=== PATIENT | female | born 2000 | race Caucasian/White ===

== ENCOUNTER 2018-09-13 18:53 | Emergency (ER) | payer OTHER ==
[~2018-09-13] VITALS: Ht 160 cm; Wt 52.3 kg
[2018-09-13] MEDS ORDERED: PRENTAB55 PO (18:58)
--- NOTE | 2018-09-13 21:55 | REPVR ---
EXAM: US First Trimester, Transabdominal EXAM DATE/TIME: 09/13/2018 8:56 PM CLINICAL HISTORY: 18 years old, female; Signs and symptoms; Lmp or gestational age (in weeks): Lmp 07/28/18; Antepartum complications; Bleeding; ; Additional info: Vaginal bleeding TECHNIQUE: Real-time transabdominal obstetrical ultrasound of the maternal pelvis and a first trimester , less than 14 weeks 0 days, with image documentation. COMPARISON: No relevant prior studies available. FINDINGS: GESTATION: Gestation: Small gestational sac within the fundal endometrium which contains an internal structure. Heart rate: No heartbeat is seen BIOMETRY: Mean sac diameter: Mean sac size is 2.4 mm suggesting an age of 4 weeks 6 days. MATERNAL: Uterus: The uterus measures 8.0 cm in its cephalocaudad dimension and 3.6 x 5.7 cm in its AP and lateral dimensions transabdominal. The uterus measures 8.0 cm in its cephalocaudad dimension and 3.4 x 4.9 cm in its AP and lateral dimensions transvaginal. The endometrium measures 12 mm both transabdominal and transvaginal. Cervix: Unremarkable. Right adnexa: The right ovary measures 3.6 x 2.2 x 2.1 cm and demonstrates blood flow. Left adnexa: The left ovary measures 2.4 x 3.7 x 2.8 cm and demonstrates blood flow. Intraperitoneal: Trace fluid in the cul-de-sac which is physiologic. IMPRESSION: 1. Very early gestational sac within the fundal endometrium which by size suggests an age of 4 weeks 6 days. Followup in 1-2 weeks may be of benefit to establish viability. 2. Otherwise negative pelvic sonogram. Electronically signed by: Seth Jose On 09/13/2018 21:54:58 PM
[2018-09-13 22:13] VITALS: BP 111/57
== END 2018-09-13 22:17 | disposition home or self-care (01) ==
LOC: M ED 18:53
DX: O20.9 Hemorrhage in early pregnancy, unspecified (principal); Z3A.01 Less than 8 weeks gestation of pregnancy; Z88.8 Allergy status to other drugs, medicaments and biological substances; Z87.891 Personal history of nicotine dependence

== ENCOUNTER 2018-09-15 15:40 | Emergency (ER) | payer OTHER ==
[~2018-09-15] VITALS: Ht 160 cm; Wt 50.9 kg
[2018-09-15 15:40] VITALS: BP 116/63
[~2018-09-15 15:40] MED LIST: PRENTAB55 PO
[2018-09-15 16:14] LABS: BASO # 0.1 10^3/uL (0.0-0.2); BASO % 1.2 % (0.0-1.0); EOS # 0.1 10^3/uL (0.0-0.50); EOS % 1.3 % (0.0-3.0); HEMATOCRIT 40.8 % (36.0-47.0); HEMOGLOBIN 13.4 g/dl (12.0-15.5); LYMPH # 1.9 10^3/uL (1.5-6.5); LYMPH % 27.2 % (24.0-44.0); MEAN CORPUSCULAR HEMOGLOBIN 28.9 pg (27.0-33.0); MEAN CORPUSCULAR HGB CONC 32.8 g/dl (32.0-36.5); MEAN CORPUSCULAR VOLUME 87.9 fl (80.0-96.0); MONO # 0.6 10^3/uL (0.0-0.8); MONO % 8.4 % (0.0-5.0); NEUTROPHILS # 4.2 10^3/uL (1.8-7.7); NEUTROPHILS % 61.8 % (36.0-66.0); PLATELET COUNT, AUTOMATED 253 10^3/uL (150-450); RED BLOOD COUNT 4.64 10^6/uL (4.00-5.40); WHITE BLOOD COUNT 6.8 10^3/uL (4.0-10.0)
[2018-09-15 16:31] LABS: BLOOD UREA NITROGEN 10 MG/DL (7-18); CALCIUM LEVEL 9.2 MG/DL (8.5-10.1); CARBON DIOXIDE LEVEL 28 MEQ/L (21-32); CHLORIDE LEVEL 103 MEQ/L (98-107); GLUCOSE, FASTING 88 MG/DL (70-100); POTASSIUM SERUM 4.3 MEQ/L (3.5-5.1); SODIUM LEVEL 140 MEQ/L (136-145)
[2018-09-15 16:36] LABS: HCG, SERUM QUALITATIVE POSITIVE (NEGATIVE)
== END 2018-09-15 18:06 | disposition left against medical advice (07) ==
LOC: M ED 15:40
DX: O20.0 Threatened abortion (principal); Z87.891 Personal history of nicotine dependence; Z3A.01 Less than 8 weeks gestation of pregnancy; Z88.8 Allergy status to other drugs, medicaments and biological substances

== ENCOUNTER → 2018-11-08 | Outpatient (REF) | payer OTHER | LOC: M SFHCLERA 10:40 | PROVIDERS: ATTEND Physician Assistant | DX: R30.0 Dysuria (principal) ==

== ENCOUNTER 2018-11-16 18:17 | Emergency (ER) | payer OTHER ==
[~2018-11-16] VITALS: Ht 162.6 cm; Wt 62.5 kg
[2018-11-16] MEDS ORDERED: CRANBERRY (18:27)
[2018-11-16] MEDS ORDERED: XULA1DIS (18:27)
[2018-11-16 20:55] VITALS: BP 118/81
== END 2018-11-16 20:55 | disposition home or self-care (01) ==
LOC: M ED 18:17
DX: R30.0 Dysuria (principal)

== ENCOUNTER 2019-05-13 20:04 | Emergency (ER) | payer OTHER ==
[~2019-05-13] VITALS: Ht 152.4 cm; Wt 68.2 kg
[~2019-05-13 20:04] MED LIST changes: +CRANBERRY; +XULA1DIS
[2019-05-13 20:55] LABS: BASO # 0.1 10^3/uL (0.0-0.2); BASO % 0.8 % (0.0-1.0); EOS # 0.1 10^3/uL (0.0-0.5); HEMATOCRIT 44.7 % (36.0-47.0); HEMOGLOBIN 15.1 g/dl (12.0-15.5); LYMPH # 1.9 10^3/uL (1.5-5.0); LYMPH % 27.4 % (24.0-44.0); MEAN CORPUSCULAR HEMOGLOBIN 30.2 pg (27.0-33.0); MEAN CORPUSCULAR HGB CONC 33.8 g/dl (32.0-36.5); MEAN CORPUSCULAR VOLUME 89.4 fl (80.0-96.0); MONO # 0.5 10^3/uL (0.0-0.8); MONO % 7.6 % (0.0-5.0); NEUTROPHILS # 4.4 10^3/uL (1.5-8.5); NEUTROPHILS % 61.9 % (36.0-66.0); PLATELET COUNT, AUTOMATED 312 10^3/uL (150-450); WHITE BLOOD COUNT 7.1 10^3/uL (4.0-10.0)
[2019-05-13 21:05] LABS: ALBUMIN 4.4 GM/DL (3.2-5.2); ALT/SGPT 15 U/L (12-78); BILIRUBIN,DIRECT < 0.1 MG/DL (0.0-0.2); BILIRUBIN,TOTAL 0.3 MG/DL (0.2-1.0); BLOOD UREA NITROGEN 12 MG/DL (7-18); CALCIUM LEVEL 9.8 MG/DL (8.5-10.1); CARBON DIOXIDE LEVEL 28 MEQ/L (21-32); CHLORIDE LEVEL 105 MEQ/L (98-107); CREATININE FOR GFR 0.72 MG/DL (0.55-1.30); GLUCOSE, FASTING 86 MG/DL (70-100); LIPASE 139 U/L (73-393); POTASSIUM SERUM 4.7 MEQ/L (3.5-5.1); SODIUM LEVEL 140 MEQ/L (136-145); TOTAL PROTEIN 8.5 GM/DL (6.4-8.2)
[2019-05-13] MEDS ORDERED: NS 1,000 ML IV ONE (22:15)
[2019-05-13 22:18] LABS: INR 0.93; PROTHROMBIN TIME 12.2 SECONDS (11.8-14.0)
[2019-05-13 22:28] LABS: HCG, SERUM QUALITATIVE NEGATIVE (NEGATIVE)
[2019-05-13] MEDS ORDERED: PROC1AER16 PR (23:09)
[2019-05-13 23:41] VITALS: BP 112/68
--- NOTE | 2019-05-14 08:14 | REP ---
Acute abdominal series: Four views. History: Gastrointestinal bleed. Findings: Upright chest radiograph is normal. There is no evidence of infiltrate or free subdiaphragmatic air. Heart is not enlarged. Supine and erect views of the abdomen reveal a normal bowel gas pattern. Surgical clips are noted in the right upper quadrant, right mid abdomen, and umbilical jewelry is noted incidentally. Psoas margins and flank stripes are intact. No mass, organomegaly, or pathologic calcification is seen. Impression: Surgical clips in the right upper and right mid abdomen. Otherwise negative abdominal series. Electronically Signed by Kwame Choi MD 05/14/2019 08:05 A
== END 2019-05-13 23:51 | disposition home or self-care (01) ==
LOC: M ED 20:04
DX: K62.5 Hemorrhage of anus and rectum (principal); K64.9 Unspecified hemorrhoids

== ENCOUNTER → 2019-05-19 | Outpatient (REF) | payer OTHER ==
[~2019-05-19] MED LIST changes: +PROC1AER16 PR
== END ==
LOC: M SFHCLERA 11:46
PROVIDERS: ATTEND Nurse Practitioner Family
DX: J02.9 Acute pharyngitis, unspecified (principal)

== ENCOUNTER 2019-06-02 10:56 | Day surgery (SDC) | payer OTHER ==
[~2019-06-02] VITALS: Ht 160 cm; Wt 69.4 kg
[~2019-06-02 10:56] MED LIST changes: +NS 1,000 ML IV ONE
[2019-06-02] MEDS ORDERED: PROPOFOL 200 MG/20 ML VIAL As Ordered ONE (12:17)
[2019-06-02] MEDS ORDERED: LIDOCAINE 2% INJ 100 MG/5 ML SDV (FOR ANES.) As Ordered ONE (12:18)
--- NOTE | 2019-06-02 12:30 | ROOR ---
Patient Name: Rin Garcia Procedure Date: 06/02/2019 12:16 PM Date of : 2000 Age: 18 Room: [facility] Gender: Female Note Status: Finalized Procedure: Colonoscopy Indications: Hematochezia Providers: DO Sabrina Jackson MD: Simba Boyer Requesting Provider: Medicines: Propofol per Anesthesia Complications: No immediate complications. Procedure: Pre-Anesthesia Assessment: - Prior to the procedure, a History and Physical was performed, and patient medications and allergies were reviewed. The patient is competent. The risks and benefits of the procedure and the sedation options and risks were discussed with the patient. All questions were answered and informed consent was obtained. Patient identification and proposed procedure were verified by the physician, the nurse, the anesthesiologist and the field contact technician in the endoscopy suite. Mental Status Examination: alert and oriented. Airway Examination: normal oropharyngeal airway and neck mobility. Respiratory Examination: clear to auscultation. CV Examination: normal. Prophylactic Antibiotics: The patient does not require prophylactic antibiotics. Prior Anticoagulants: The patient has taken no previous anticoagulant or antiplatelet agents. ASA Grade Assessment: II - A patient with mild systemic disease. After reviewing the risks and benefits, the patient was deemed in satisfactory condition to undergo the procedure. The anesthesia plan was to use monitored anesthesia care (MAC). Immediately prior to administration of medications, the patient was re-assessed for adequacy to receive sedatives. The heart rate, respiratory rate, oxygen saturations, blood pressure, adequacy of pulmonary ventilation, and response to care were monitored throughout the procedure. The physical status of the patient was re-assessed after the procedure. The Colonoscope was introduced through the anus with the intention of advancing to the cecum. The scope was advanced to the sigmoid colon before the procedure was aborted. Medications were not given. The colonoscopy was performed without difficulty. The patient tolerated the procedure well. Findings: Non-bleeding internal hemorrhoids were found during retroflexion. The hemorrhoids were small and Grade I (internal hemorrhoids that do not prolapse). Copious quantities of solid stool was found in the rectum, precluding visualization. The exam was otherwise without abnormality on direct and retroflexion views. Impression: - Non-bleeding internal hemorrhoids. - Stool in the rectum. - The examination was otherwise normal on direct and retroflexion views. - No specimens collected. Recommendation: - Patient has a contact number available for emergencies. The signs and symptoms of potential delayed complications were discussed with the patient. Return to normal activities tomorrow. Written discharge instructions were provided to the patient. - Repeat colonoscopy in 5-10 years for screening purposes. - Return to my office PRN. Joseph Peraza DO 06/02/2019 12:30:03 PM Electronically signed by Joseph Peraza DO Number of Addenda: 0 Note Initiated On: 06/02/2019 12:16 PM Estimated Blood Loss: Estimated blood loss: none.
[2019-06-02 13:00] VITALS: BP 112/80
== END 2019-06-02 13:14 | disposition home or self-care (01) ==
LOC: M OPP 10:56
PROVIDERS: ATTEND Surgery
DX: K62.5 Hemorrhage of anus and rectum (principal); K64.0 First degree hemorrhoids; D64.9 Anemia, unspecified; F17.210 Nicotine dependence, cigarettes, uncomplicated; Z88.8 Allergy status to other drugs, medicaments and biological substances

== ENCOUNTER → 2019-11-20 | Outpatient (REF) | payer OTHER ==
[~2019-11-20] MED LIST changes: -NS 1,000 ML IV ONE
== END ==
LOC: M SFHCLERA 14:39
PROVIDERS: ATTEND Physician Assistant
DX: L02.212 Cutaneous abscess of back [any part, except buttock and flank] (principal)

== ENCOUNTER → 2019-11-20 | Outpatient (REF) | payer OTHER | LOC: M LAB REF 19:27 | PROVIDERS: ATTEND Physician Assistant | DX: L02.212 Cutaneous abscess of back [any part, except buttock and flank] (principal) | CPT/HCPCS: 10060; 87070; G0463 ==